=== PATIENT | male | born 1960 | race Caucasian/White ===

== ENCOUNTER 2025-03-20 15:17 | Outpatient (AMB) | payer BC, SELFPAY ==
--- NOTE | 2025-03-20 15:21 | A.OFFPC_ITS ---
Vital Signs 03/20/25 15:22 Height 5 ft 11.65 in Weight 256 lb 2 oz BMI 35.1 BP 116/86 Blood Pressure Location Lt brachial Position Sitting Respiration 12 Pulse 97 Pulse Source Pulse Oximeter Temp 98.2 F Temp Source Oral Pulse Oximetry (%) 92 Oxygen Delivery Method Room Air Intake Visit Reasons: SHAILA/REQUESTING PE Intake Note: New patient visit Death Claim Clerk Required: No Allergies olmesartan (From Benicar) Allergy (Intermediate, Verified 03/20/25 15:24) redness all over aspirin (ASPIRIN) Allergy (Unknown, Unverified 05/03/20 14:43) PALPITATIONS Tobacco use date assessed: 03/20/25 HPI HPI Comments History of Present Illness Details The patient is a 64 year old male with a past medical history of hypertension, impaired glucose presenting to [facility]. Transfer from Dr Smith Currently being treated for lyme disease. Recent bite on right arm-got flu like symptoms seen in ER. On doxycycline. No residual rash or symptoms Patient is frustrated by weight gain. Would consider GLP. Has tried diet and exercise without weight loss History of prostatitis. Symptoms flaring recently. Needs urology referral Cologuard thinks >3 years ago. ordered. declines colonoscopy referral ROS see HPI PHYSICAL EXAM: GENERAL: Alert and oriented x 3. NAD EYES: EOMI. Anicteric. HENT: Moist mucous membranes. No scleral icterus. No cervical lymphadenopathy. LUNGS: Clear to auscultation bilaterally. CARDIOVASCULAR: Regular rate and rhythm. No murmur. No JVD. ABDOMEN: Soft, non-tender +bs EXTREMITIES: No edema. Non-tender. SKIN: No rashes or lesions. Warm. NEUROLOGIC: No focal neurological deficits. CN II-XII grossly intact PSYCHIATRIC: Cooperative. Appropriate mood and affect [facility] Surgical History No pertinent past surgical history Family History Other Substance abuse Social History Housing: House Alcohol intake: current Patient Tobacco Use Status: Former Tobacco user (high school years) Years Smoked: 4 e-Cigarette/Vaping Use: Never Used Second Hand Smoke Exposure: No service: No Current occupational status: retired Cognitive needs: No Hearing needs: Yes (bilateral hearing aids) Vision needs: No Questionnaire PHQ-9 Over the last 2 weeks, how often have you been bothered by any of the following problems? 1. Little interest or pleasure in doing things: not at all 2. Feeling down, depressed, or hopeless: not at all 3. Trouble falling or staying asleep, or sleeping too much: not at all 4. Feeling tired or having little energy: not at all 5. Poor appetite or overeating: not at all 6. Feeling bad about yourself - or that you are a failure or have let yourself or your family down: not at all 7. Trouble concentrating on things, such as reading the newspaper or watching television: not at all 8. Moving or speaking so slowly that other people could have noticed. Or the opposite - being so fidgety or restless that you have been moving around a lot more than usual: not at all 9. Thoughts that you would be better off or of hurting yourself in some way: not at all Total score: 0 Depression Screening Interpretation: Negative Depression Screening Done: Yes 14474 - PHQ-9 Billing: Yes Source: Developed by Drs. Bright Sanchez, Tatiana Christianson, Hansel Barraza and colleagues, with an educational leslie from [employer]. Thrive Questionnaire I am a: Patient What is your living situation today?: I have a steady place to live Within the past 12 months, did the food you bought not last and you didn't have the money to get more?: Never true Within the past 12 months, did you worry whether your food would run out before you got money to buy more?: Never true Do you have trouble paying for medicines?: No Do you have trouble getting transportation to medical appointments?: No Do you have trouble paying your heating and electricity bill?: No Do you have trouble taking care of your child, family member or friend?: No Do you have trouble with day-to-day activities such as bathing, preparing meals, shopping, managing finances, etc.?: No Are you currently unemployed and looking for a job?: No Are you interested in more education?: No Please select the resources that you would like help with: None Currently or been in a relationship where the following occur: No concerns reported THRIVE Score: 0 AUDIT C Alcohol Use Questionnaire (AUDIT-C) 1. How often do you have a drink containing alcohol?: Never Total Score: 0 KEVIN-7 AMB Questionnaire KEVIN-7 Feeling nervous, anxious, or on edge: 0 = Not at all Not being able to stop or control worryin = Not at all Worrying too much about different things: 0 = Not at all Trouble relaxin = Not at all Being so restless that it is hard to sit still: 0 = Not at all Becoming easily annoyed or irritable: 0 = Not at all Feeling afraid as if something awful might happen: 0 = Not at all Total KEVIN-7 score (0-4 normal; 5-9 mild; 10-14 moderate; 15-21 severe): 0 Source: Developed by Drs. Bright Sanchez, Tatiana Christianson, Hansel Barraza and colleagues, with an educational leslie from [employer]. Physical exam (Primary Care) Vital Signs: Last Vital Signs Temp 98.2 F 03/20/25 15:22 Pulse 97 03/20/25 15:22 Resp 12 03/20/25 15:22 BP 116/86 03/20/25 15:22 Pulse Ox 92 03/20/25 15:22 Oxygen Delivery Method Room Air 03/20/25 15:22 BMI result Body Mass Index 35.1 Tobacco/Smoking Status: Tobacco use Status Tobacco use date assessed 03/20/25 03/20/25 15:29 Patient Tobacco Use Status Former Tobacco user (high 03/20/25 15:29 school years) e-Cigarette/Vaping Use Never Used 03/20/25 15:29 PHQ-9: PHQ-9 Score PHQ-9: Total score 0 03/24/25 07:48 Depression Screening Interpretation: Negative Currently or been in a relationship where the following occur: No concerns reported Coding Level of Care Code New Pt Level 4 (46057) Complex EM visit Add On G2211 Diagnoses Primary hypertension I10 Hypertension type: primary hypertension History of Lyme disease Z86.19 Prostatitis, unspecified prostatitis type N41.9 Prostatitis type: unspecified Additional Codes PHQ-9 - 87373 - PHQ-9 Billing: Yes ([id number]) Assessment & Plan Assessment & Plan (1) Hypertension: Code(s): I10 - Essential (primary) hypertension Category: Medical Qualifiers: Hypertension type: primary hypertension Qualified Code(s): I10 - Essential (primary) hypertension (2) History of Lyme disease: Code(s): Z86.19 - Personal history of other infectious and parasitic diseases Category: Medical (3) Prostatitis: Code(s): N41.9 - Inflammatory disease of prostate, unspecified Category: Medical Qualifiers: Prostatitis type: unspecified Qualified Code(s): N41.9 - Inflammatory disease of prostate, unspecified Plan 64 to establish care. Past medical, surgical, social reviewed continue doxycycline Urology referral placed-h/o prostatitis [place] ordered. Labs ordered Orders: Orders Comprehensive Met. Panel 03/20/25 N41.9 - Inflammatory disease of prostate, unspecified, R63.5 - Abnormal weight gain, Z13.228 - Encounter for screening for other metabolic disorders, Z86.19 - Personal history of other infectious and parasitic diseases Lipid Panel 03/20/25 N41.9 - Inflammatory disease of prostate, unspecified, R63.5 - Abnormal weight gain, Z13.228 - Encounter for screening for other metabolic disorders, Z86.19 - Personal history of other infectious and parasitic diseases Complete Blood Count Auto Diff 03/20/25 N41.9 - Inflammatory disease of prostate, unspecified, R63.5 - Abnormal weight gain, Z13.228 - Encounter for screening for other metabolic disorders, Z86.19 - Personal history of other infectious and parasitic diseases Hemoglobin A1c 03/20/25 N41.9 - Inflammatory disease of prostate, unspecified, R63.5 - Abnormal weight gain, Z13.228 - Encounter for screening for other metabolic disorders, Z86.19 - Personal history of other infectious and parasitic diseases Referrals Cologuard Test Z12.11 - Encounter for screening for malignant neoplasm of colon, Z12.12 - Encounter for screening for malignant neoplasm of rectum Urology Referral N41.9 - Inflammatory disease of prostate, unspecified Medications: New Zepbound (tirzepatide (weight loss)) for 4 weeks 2.5 mg (0.5 mL) subcut QWEEK 6 mL 0RF NS E66.9 - Obesity, unspecified, I10 - Essential (primary) hypertension
[2025-03-20 15:22] VITALS: BP 116/86; PULSE 97; RESP 12; TEMP 36.8; O2SAT 92; BMI 35.1
== END 2025-03-20 15:55 | disposition home or self-care (01) ==
LOC: HO.HMCFM 15:18
PROVIDERS: PCP Internal Medicine; Visit Provider Internal Medicine
DX: I10 Essential (primary) hypertension (principal); Z86.19 Personal history of other infectious and parasitic diseases; N41.9 Inflammatory disease of prostate, unspecified

== ENCOUNTER → 2025-03-20 15:17 | Outpatient (BNVA) | payer BC, SELFPAY | PROVIDERS: PCP Internal Medicine; Visit Provider Internal Medicine | DX: Z13.31 Encounter for screening for depression (principal); I10 Essential (primary) hypertension; N41.9 Inflammatory disease of prostate, unspecified; Z86.19 Personal history of other infectious and parasitic diseases; Z87.891 Personal history of nicotine dependence | CPT/HCPCS: 96127 ==